=== PATIENT | male | born 1945 | race Caucasian/White ===

== ENCOUNTER 2018-04-24 18:43 | Emergency (ER) | payer OTHER ==
[2018-04-24] MEDS ORDERED: TRANEXAMIC ACID 1,000 MG/10 ML ML TOP ONE (19:20)
[2018-04-24] MEDS ORDERED: THROMBIN/GELATIN FOAM HEMOSTAT (THROMBI-GEL) TP ONE ×2 (19:20→22:07)
--- NOTE | 2018-04-24 19:39 | Emergency Department Record ---
History of Present Illness - General Chief Complaint: Laceration(s) Stated Complaint: LACERATION ON LEFT HAND,RING FINGER Time Seen by Provider: 04/24/18 19:19 Source: Patient, Family Mode of Arrival: Ambulatory Limitations: No limitations - History of Present Illness Initial Commments: 72 yo male presents with a tip avulsion injury of the finger. He was slicing with a mandolin slicer and cut the tip of the left middle finger. He is on Xarelto. His bleeding has persisted. No other injuries. Last tetanus is up to date at 4 years. Onset/Timin -: Minutes(s) Context: Accidental Associated Symptoms: None - Jaqueline Coma Scale Eye Response: (4) Open spontaneously Motor Response: (6) Obeys commands Verbal Response: (5) Oriented Jaqueline Total: 15 - Related Data Hx Tetanus Toxoid Vaccination: (4-5 year ago) Home Medications Medication Instructions Recorded Confirmed Last Taken Atorvastatin Calcium [Lipitor] 20 mg PO QHS 04/24/18 04/24/18 04/23/18 Furosemide [Lasix] 40 mg PO DAILY 04/24/18 04/24/18 04/23/18 Loratadine [Allergy Relief] 10 mg PO DAILY 04/24/18 04/24/18 04/23/18 Metoprolol Tartrate [Lopressor] 25 mg PO Q12H 04/24/18 04/24/18 04/23/18 Rivaroxaban [Xarelto] 20 mg PO DAILY 04/24/18 04/24/18 04/23/18 Tamsulosin HCl [Flomax] 0.4 mg PO DAILY 04/24/18 04/24/18 04/23/18 Allergies Allergy/AdvReac Type Severity Reaction Status Date / Time lisinopril AdvReac HYPERSENSIT Verified 04/24/18 19:16 IVITY Travel Screening - Travel/Exposure Within Last 30 Days Have you traveled within the last 30 days?: No - Travel/Exposure Within Last Year Have you traveled outside the [place] in the last year?: No - Additonal Travel Details Have you been exposed to anyone with a communicable illness?: No - Travel Symptoms Symptom Screening: None Review of Systems Constitutional: Denies: Chills, Fever Eyes: Denies: Vision change ENT: Denies: Congestion Respiratory: Denies: Cough Cardiovascular: Denies: Chest pain, Syncope Endocrine: Denies: Fatigue Gastrointestinal: Denies: Abdominal pain, Diarrhea, Nausea, Vomiting Genitourinary: Denies: Dysuria, Frequency, Hematuria Musculoskeletal: Denies: Arthralgia, Joint swelling, Myalgia Skin: Reports: Other. Denies: Bruising, Change in color Neurological: Denies: Headache, Numbness, Tingling, Weakness Psychiatric: Denies: Anxiety Hematological/Lymphatic: Denies: Easy bleeding, Easy bruising Past Medical History - SOCIAL HISTORY Smoking Status: Never smoker Alcohol Use: Rare Drug Use: None - RESPIRATORY Hx Respiratory Disorders: Yes Hx Bronchitis: Yes Hx of CPAP: Yes - CARDIOVASCULAR Hx Cardio Disorders: Yes Hx Abnormal EKG: Yes Hx Irregular Heartbeat: Yes - NEURO Hx Neuro Disorders: No - GI Hx GI Disorders: Yes Hx Diverticulitis: Yes - Hx Genitourinary Disorders: No - ENDOCRINE Hx Endocrine Disorders: Yes Hx Diabetes: No Hx Thyroid Disease: Yes - MUSCULOSKELETAL Hx Musculoskeletal Disorders: No - PSYCH Hx Psych Problems: Yes Comment:: ptsd - HEMATOLOGY/ONCOLOGY Hx Hematology/Oncology Disorders: No Family Medical History Any Significant Family History?: No Physical Exam - General General Appearance: Alert, Oriented x3, Cooperative, No acute distress Limitations: No limitations - Head Head exam: Atraumatic, Normal inspection - Eye Eye exam: Normal appearance - ENT ENT exam: Normal exam Ear exam: Normal external inspection Nasal Exam: Normal inspection Mouth exam: Normal external inspection - Neck Neck exam: Normal inspection - Cardiovascular Cardiovascular Exam: Regular rate, Normal rhythm, Normal heart sounds Peripheral Pulses: 2+: Radial (L) - Rectal Rectal exam: Deferred - exam: Deferred - Extremities Extremities exam: Normal capillary refill Image of Finger Tip: 1 - 6mm circular clean avulsion injury - Neurological Neurological exam: Alert, Oriented X3. negative: Motor sensory deficit - Psychiatric Psychiatric exam: Normal affect, Normal mood - Skin Skin exam: Other (finger tip avulsion injury) Course Vital Signs 04/24/18 19:02 Temperature 98.4 F Pulse Rate 64 Respiratory 20 Rate Blood Pressure 106/99 Pulse Ox 96 - Reevaluation(s) Reevaluation #1: The avulsion injury was treated with topical TXA and thrombigel with good hemostasis 04/24/18 19:46 04/24/18 20:22 The Throbigel and TXA continue to demonstrate good hemostatis. He will be provided a dressing and home instructions Disposition Disposition: Discharge Clinical Impression: Avulsion, finger tip Disposition: Home, Self-Care Condition: (1) Good Instructions: Laceration (ED) Additional Instructions: Leave the dressing on 48 hours Gently soak the dressing off in 2 days Return if you have bleeding Then dress daily with a thin layer of antibiotic ointment and an band aide This may take 2-3 weeks to heal. Call your doctor tomorrow for a recheck of the healing Forms: Patient Portal Access Time of Disposition: 20:24 Quality - Quality Measures Quality Measures: N/A - Blood Pressure Screening Does Patient Have Any of the Following: Active Dx of HTN Blood Pressure Classification: Hypertensive Reading Systolic Measurement: 106 Diastolic Measurement: 99 Screening for High Blood Pressure: Patient Exclusion, Hx of HTN [G9744]
[2018-04-24] MEDS ORDERED: TOPICAL LIDOCAINE W/ EPI 5 ML TOP ONE (22:07)
== END 2018-04-24 20:43 | disposition home or self-care (01) ==
LOC: ER 18:43
DX: S61.213A Laceration without foreign body of left middle finger without damage to nail, initial encounter (principal); W27.4XXA Contact with kitchen utensil, initial encounter; I10 Essential (primary) hypertension; Z79.01 Long term (current) use of anticoagulants
CPT/HCPCS: 99283

== ENCOUNTER 2018-04-24 22:15 | Emergency (ER) | payer OTHER ==
[2018-04-24] MEDS ORDERED: THROMBIN/GELATIN FOAM HEMOSTAT (THROMBI-GEL) TP ONE (22:16)
[2018-04-24] MEDS ORDERED: TOPICAL LIDOCAINE W/ EPI 5 ML TOP ONE (22:16)
--- NOTE | 2018-04-24 22:32 | Emergency Department Record ---
History of Present Illness - General Chief Complaint: Wound, check Stated Complaint: BLEEDING THROUGH DRESSING Time Seen by Provider: 04/24/18 22:29 Source: Patient, Family Mode of arrival: Ambulatory Limitations: No limitations - History of Present Illness Initial Comments: 72 yo male presents with bleeding through his dressing. He sliced his left ring finger with a mandolin slicer. He noted some wet blood on his tube gauze. No pain. MD Complaint: Wound re-check -: Hour(s) Initial Visit For: Laceration Returns Today for: Wound recheck Symptoms Since Prior Visit: Other (bleeding) Associated Symptoms: None Treatments Prior to Arrival: Other (dressing applied with thrombigel) - Related Data Allergies Allergy/AdvReac Type Severity Reaction Status Date / Time lisinopril AdvReac HYPERSENSIT Verified 04/24/18 19:16 IVITY Review of Systems Constitutional: Denies: Chills, Fever, Weakness Eyes: Denies: Eye discharge ENT: Denies: Congestion, Throat pain Respiratory: Denies: Cough Cardiovascular: Denies: Chest pain Endocrine: Denies: Fatigue Gastrointestinal: Denies: Diarrhea, Nausea, Vomiting Genitourinary: Denies: Dysuria, Frequency Musculoskeletal: Denies: Arthralgia, Back pain, Myalgia Skin: Reports: Other. Denies: Bruising, Change in color Neurological: Denies: Numbness, Tingling Psychiatric: Denies: Anxiety Hematological/Lymphatic: Reports: Easy bleeding. Denies: Easy bruising Past Medical History - SOCIAL HISTORY Smoking Status: Never smoker Drug Use: None - RESPIRATORY Hx Respiratory Disorders: Yes Hx Bronchitis: Yes Hx of CPAP: Yes - CARDIOVASCULAR Hx Cardio Disorders: Yes Hx Abnormal EKG: Yes Hx Irregular Heartbeat: Yes - NEURO Hx Neuro Disorders: No - GI Hx GI Disorders: Yes Hx Diverticulitis: Yes - Hx Genitourinary Disorders: No - ENDOCRINE Hx Endocrine Disorders: Yes Hx Diabetes: No Hx Thyroid Disease: Yes - MUSCULOSKELETAL Hx Musculoskeletal Disorders: No - PSYCH Hx Psych Problems: Yes Comment:: ptsd - HEMATOLOGY/ONCOLOGY Hx Hematology/Oncology Disorders: No Physical Exam - General General Appearance: Alert, Oriented x3, No acute distress Limitations: No limitations - Head Head exam: Atraumatic, Normal inspection - Eye Eye exam: Normal appearance - ENT ENT exam: Normal exam Ear exam: Normal external inspection Nasal Exam: Normal inspection - Neck Neck exam: Normal inspection - Cardiovascular Peripheral Pulses: 2+: Radial (L) - Extremities Extremities exam: negative: Normal inspection Image of Finger Tip: 1 - minimal to no oozing from the avulsion site, the area is clean, brisk cap refill - Neurological Neurological exam: Alert, Oriented X3 - Psychiatric Psychiatric exam: Normal affect, Normal mood - Skin Skin exam: Other (avulsion of finger tip) Course - Reevaluation(s) Reevaluation #1: The dressing was gently removed The thrombigel was removed. No visible oozing or bleeding A thrombi-gel was then reapplied The dressing was replaced without bleeding. 04/24/18 22:30 04/24/18 22:51 No bleeding Will replace the tube gauze and DC Disposition Disposition: Discharge Clinical Impression: Avulsion, finger tip Disposition: Home, Self-Care Condition: (1) Good Instructions: Skin Avulsion (ED) Additional Instructions: Return if you have pain or bleeding Return in 48 hours to have the dressing removed Forms: Patient Portal Access Time of Disposition: 22:32 Quality - Quality Measures Quality Measures: N/A - Blood Pressure Screening Does Patient Have Any of the Following: No Blood Pressure Classification: Pre-Hypertensive BP Reading Systolic Measurement: 121 Diastolic Measurement: 81 Screening for High Blood Pressure: < Pre-Hypertensive BP, F/U Documented > [ [id number]] Pre-Hypertensive Follow-up Interventions: Referral to alternative/primary care provider.
== END 2018-04-24 23:10 | disposition home or self-care (01) ==
LOC: ER 22:15
DX: S61.213A Laceration without foreign body of left middle finger without damage to nail, initial encounter (principal); W27.4XXA Contact with kitchen utensil, initial encounter
CPT/HCPCS: 99282